=== PATIENT | male | born 1985 | race Caucasian/White ===

== ENCOUNTER 2017-04-16 04:34 | Inpatient (IN) | payer OTHER ==
[~2017-04-16] VITALS: Ht 185.4 cm; Wt 74.8 kg
[~2017-04-16 04:34] MED LIST: BUPR150T5 PO; LITH150C PO
--- NOTE | 2017-04-16 05:13 | NUR ---
Spoke with [facility]. The patient had an spine surgery on 04/12/17. He was treated by Dr Gifford. Awaiting for a call back from [facility].
[2017-04-16] MEDS ORDERED: ONDANSETRON 4 MG/2 ML VIAL IV ONE (05:15)
[2017-04-16] MEDS ORDERED: MORPHINE SULFATE 2 MG/1 ML DISP.SYRIN IV ONE (05:15)
[2017-04-16] MEDS ORDERED: ONDANSETRON 4 MG/2 ML VIAL ONE (05:32)
[2017-04-16] MEDS ORDERED: MORPHINE SULFATE 10 MG/1 ML DISP.SYRIN ONE (05:33)
--- NOTE | 2017-04-16 05:37 | NUR ---
ER spoke with Dr Gifford (Neurosurgeon). Patient is to be admitted at [facility].
--- NOTE | 2017-04-16 05:55 | NUR ---
Josue adult education teacher paged for Dr. Ashton
[2017-04-16 06:07] LABS: BASOPHILS # (AUTO) 0.2 K/uL (0.0-8.0); BASOPHILS % (AUTO) 1.2 % (0.0-2.0); EOSINOPHILS % (AUTO) 0.3 % (0.0-7.0); HEMATOCRIT 41.3 % (40-50); LYMPHOCYTES # (AUTO) 1.9 K/UL (0.8-4.8); MEAN CORPUSCULAR HEMOGLOBIN 31.1 UUG (27.0-31.0); MEAN CORPUSCULAR HGB CONC 34 g/dL (32.0-37.0); MEAN CORPUSCULAR VOLUME 91.7 FL (82.0-92.0); MONOCYTES # (AUTO) 1.3 K/UL (0.1-1.30); MONOCYTES % (AUTO) 9.3 % (0.0-11.0); NEUTROPHILS % (AUTO) 76.2 % (38.5-71.5); PLATELET COUNT (AUTO) 238 K/UL (150-450); RED BLOOD CELL COUNT(AUTO) 4.51 MIL/UL (4.7-6.1); WHITE BLOOD COUNT (AUTO) 14.4 K/UL (4.0-11.2)
[2017-04-16 06:26] LABS: CREATININE 0.9 mg/dL (0.6-1.3); POTASSIUM 3.7 mmol/L (3.5-5.1)
--- NOTE | 2017-04-16 06:30 | NUR ---
Report given to Payton MEADE on Med Surg.
[2017-04-16] MEDS ORDERED: HYDROMORPHONE 1 MG/1 ML DISP.SYRIN IV PRN (06:45)
[2017-04-16] MEDS ORDERED: MAGNESIUM HYDROXIDE 30 ML LIQUID UDC PO PRN (06:45)
[2017-04-16] MEDS ORDERED: Z GUARD REMEDY PASTE 57 GM TUBE TOP PRN (06:45)
--- NOTE | 2017-04-16 07:11 | NUR ---
Melissa Meade, SQL APPLICATION DEVELOPER provided with patient report, she is to assume patient care from this point on. Patient awaiting inpatient admission transport to room 228. Patient is admitted under Dr Bowen. He will be followed by Neurosurgeon Dr Gifford per ER MD, Dr Ashton. Report was given to Payton MEADE. Belongings list complete, all belongings will be transported upstairs with patient. Patient noted with surgical incision to lower back. No further skin breakdown upon assessment.
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
[2017-04-16 07:45] LABS: BILIRUBIN,TOTAL 0.6 mg/dL (0.2-1.0); CREATININE 0.8 mg/dL (0.6-1.3); POTASSIUM 3.9 mmol/L (3.5-5.1); TOTAL PROTEIN, SERUM 6.7 g/dL (6.4-8.2)
[2017-04-16 08:10] VITALS: BP 106/50
[2017-04-16] MEDS: HYDROCODONE/APAP 5-325MG TABLET PO PRN ×2 (09:30→23:08)
[2017-04-16] MEDS: LEVOFLOXACIN 500 MG/D5W 500 MG in PREMIXED 1 EACH IV SCH (09:58)
[2017-04-16] MEDS: IV NS 1000 ML 1,000 ML IV PRN (09:59)
[2017-04-16] MEDS: HYDROMORPHONE 4 MG/1 ML DISP.SYRIN IV PRN ×3 (10:16→20:07)
[2017-04-16 11:28] VITALS: BP 106/57
[2017-04-16 15:42] VITALS: BP 105/58
[2017-04-16] MEDS ORDERED: HYDROMORPHONE 1 MG/1 ML DISP.SYRIN IM ONE (17:15)
--- NOTE | 2017-04-16 17:20 | NUR ---
Exchange was called in order to reach Dr. Leong. The person at the exchange told me that Dr. Leong is client professional for ER and new admit pts only. The exchange transferred me to Wil Calderon NP. The Pt was in 10/10 pain crying, sweating, goose bumps, moaning, grimacing, scared, verbalizes feelings of impending doom. He then gave me an order for diluadid 1mg IV X1 now.
[2017-04-16] MEDS ORDERED: HYDROMORPHONE 4 MG/1 ML DISP.SYRIN IV ONE (17:30)
[2017-04-16 20:19] VITALS: BP 113/54
[2017-04-16] MEDS: ONDANSETRON 4 MG/2 ML VIAL IV PRN (23:08)
[2017-04-17] MEDS: HYDROMORPHONE 4 MG/1 ML DISP.SYRIN IV PRN ×6 (00:12→20:26)
[2017-04-17] MEDS ORDERED: HYDROMORPHONE 4 MG/1 ML DISP.SYRIN ONE (00:18)
[2017-04-17] MEDS: HYDROCODONE/APAP 5-325MG TABLET PO PRN ×2 (03:06→06:49)
[2017-04-17] MEDS: IV NS 1000 ML 1,000 ML IV PRN ×2 (04:15→20:31)
[2017-04-17] MEDS ORDERED: HYDROMORPHONE 2 MG/1 ML DISP.SYRIN ONE (04:21)
--- NOTE | 2017-04-17 06:00 | NUR ---
Pt slept intermittently, in no acute distress. Pain management as ordered. IVF infusing, no infiltration noted. Pt is pleasant, cooperative. All needs met. Call light within reach, bed alarm on. Will continue to monitor.
[2017-04-17 06:45] VITALS: BP 124/71
[2017-04-17 07:33] LABS: BASOPHILS # (AUTO) 0.1 K/uL (0.0-8.0); BASOPHILS % (AUTO) 0.4 % (0.0-2.0); EOSINOPHILS # (AUTO) 0.1 K/uL (0.0-0.7); EOSINOPHILS % (AUTO) 0.7 % (0.0-7.0); HEMATOCRIT 39.3 % (36.7-47.1); HEMOGLOBIN 13.5 g/dL (12.5-16.3); LYMPHOCYTES # (AUTO) 1.8 K/uL (20.0-40.0); MEAN CORPUSCULAR HEMOGLOBIN 31.6 uug (23.8-33.4); MEAN CORPUSCULAR HGB CONC 34 g/dL (32.5-36.3); MEAN CORPUSCULAR VOLUME 92.3 fL (73.0-96.2); MONOCYTES # (AUTO) 1.1 K/uL (2.0-10.0); MONOCYTES % (AUTO) 8.4 % (0.0-11.0); NEUTROPHILS # (AUTO) 9.8 K/uL (1.8-8.9); NEUTROPHILS % (AUTO) 76.5 % (38.5-71.5); PLATELET COUNT (AUTO) 214 K/uL (152-348); RED BLOOD CELL COUNT(AUTO) 4.26 MIL/uL (4.06-5.63); WHITE BLOOD COUNT (AUTO) 12.9 K/uL (3.6-10.2)
--- NOTE | 2017-04-17 08:00 | NUR ---
DISCUSSED PLAN OF CARE RE: PAIN MANAGEMENT AND FALL PRECAUTIONS. PT IS AGREEABLE WITH PLAN OF CARE.
[2017-04-17] MEDS: LEVOFLOXACIN 500 MG/D5W 500 MG in PREMIXED 1 EACH IV SCH (08:32)
[2017-04-17 08:43] LABS: CREATININE 0.8 mg/dL (0.6-1.3); MAGNESIUM 1.7 mg/dL (1.8-2.4); PHOSPHOROUS 3.4 mg/dL (2.5-4.9); POTASSIUM 4.1 mmol/L (3.5-5.1)
--- NOTE | 2017-04-17 10:33 | NUR ---
Dilaudid was pulled form the Pyxis on night guard
[2017-04-17 12:03] VITALS: BP 108/46
[2017-04-17] MEDS ORDERED: MAGNESIUM OXIDE 400 MG TABLET PO ONE (12:15)
[2017-04-17] MEDS: ACETAMINOPHEN 325 MG TABLET PO PRN ×2 (14:50→22:33)
[2017-04-17 15:52] VITALS: BP 118/52
[2017-04-17] MEDS: ONDANSETRON 4 MG/2 ML VIAL IV PRN ×2 (16:24→22:34)
--- NOTE | 2017-04-17 17:44 | NUR ---
PT PAIN WAS MANAGED WITH DILAUDID AND NO FALL NOTED DURING SHIFT. PT OBSERVED RESTING WITHOUT RESPIRATORY DISTRESS.
[2017-04-17 20:00] VITALS: BP 128/75
[2017-04-18] MEDS: HYDROMORPHONE 4 MG/1 ML DISP.SYRIN IV PRN ×4 (00:38→13:07)
[2017-04-18] MEDS: ONDANSETRON 4 MG/2 ML VIAL IV PRN ×2 (04:54→12:46)
[2017-04-18] MEDS ORDERED: HYDROMORPHONE 4 MG/1 ML DISP.SYRIN ONE (05:02)
--- NOTE | 2017-04-18 06:00 | NUR ---
Pt was able to sleep more than 4 hours. Pt stated that he is getting better and managing his pain well. Pt is in no distress, VS stable, afebrile. Incision site at lumbar area intact, no drainage noted. Pain management as ordered. IVF running, no infiltration noted. Will continue to monitor.
[2017-04-18 06:13] VITALS: BP 129/75
--- NOTE | 2017-04-18 08:00 | NUR ---
Pt is in no acute distress. Discussed plan of care for today re: fall precaution and Pain management. Pt agreeable with plan of care. Incision on back noted less red and no drainage and no dehiscence noted.
[2017-04-18] MEDS: LEVOFLOXACIN 500 MG/D5W 500 MG in PREMIXED 1 EACH IV SCH (08:26)
[2017-04-18 09:43] LABS: CREATININE 0.9 mg/dL (0.6-1.3); MAGNESIUM 1.9 mg/dL (1.8-2.4); POTASSIUM 3.5 mmol/L (3.5-5.1)
[2017-04-18 12:00] VITALS: BP 104/68
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
== END 2017-04-18 15:15 | disposition home or self-care (01) | DRG 861 ==
LOC: ER 04:36 → MED 07:02
PROVIDERS: ADMIT Internal Medicine; ATTEND Internal Medicine
DX: G89.18 Other acute postprocedural pain (principal); R65.10 Systemic inflammatory response syndrome (SIRS) of non-infectious origin without acute organ dysfunction; E44.0 Moderate protein-calorie malnutrition; E88.09 Other disorders of plasma-protein metabolism, not elsewhere classified; F17.210 Nicotine dependence, cigarettes, uncomplicated; Z68.21 Body mass index [BMI] 21.0-21.9, adult; F11.11 Opioid abuse, in remission; Z86.19 Personal history of other infectious and parasitic diseases; G83.4 Cauda equina syndrome
CPT/HCPCS: 36415; 83735; 84100; 85025; 85730; A4663; J1170; J1956; J2270; J2405; J7030

== ENCOUNTER 2020-03-22 22:33 | Emergency (ER) | payer OTHER ==
[~2020-03-22] VITALS: Ht 188 cm; Wt 74.8 kg
--- NOTE | 2020-03-22 22:45 | NUR ---
Dr. Hermosillo at bedside for MSE.
--- NOTE | 2020-03-23 01:42 | NUR ---
Patient does not wish to proceed with medical care recommended by Dr. Hermosillo. Patient given information related to possible complications, up to and including , which could occur as a result of leaving the hospital at this time. Patient refused to sign AMA form and refused to sign homeless waiver.
[2020-03-23 01:47] VITALS: BP 140/90
== END 2020-03-23 01:47 | disposition left against medical advice (07) ==
LOC: ER 22:34
DX: R06.00 Dyspnea, unspecified (principal); R05 Cough; F17.210 Nicotine dependence, cigarettes, uncomplicated; Z86.19 Personal history of other infectious and parasitic diseases
CPT/HCPCS: 71045; 93005; A4663